=== PATIENT | female | born 1965 | race Caucasian/White ===

== ENCOUNTER → 2017-04-19 | Outpatient (CLI) | payer BC ==
[2016-03-30 13:12] VITALS: BP 156/105
[~2017-04-19] MED LIST: FLUT9.9S NS
--- NOTE | 2017-04-19 12:42 | KCIC ---
Bilateral digital screening mammogram History: 51-year-old female presents for annual screening mammography. Patient is status post right breast biopsy March 2016, pathology results not available at this time. Comparison: February 26, 2016 and April 03, 2011 Findings: Breast Tissue Density B :There are scattered areas of fibroglandular density. Bilateral digital mammogram images are obtained with CAD. There has been interval development of an 8 mm, oval, low-density mass in the upper outer right breast at anterior depth approximately 8 cm from the nipple. An asymmetry is seen within the central left breast at posterior depth on the cc view, not well visualized on the MLO view although may reside superiorly within the breast. A postbiopsy clip is now visualized within the oval mass within the 8:30 to 9:00 right breast. No suspicious architectural distortion or grouped microcalcifications are identified. Impression: Recommend spot compression views of both breasts for further evaluation of findings detailed above, with ultrasound as indicated. BI-RADS Category 0: Incomplete: Need additional imaging evaluation. Electronically signed by: Violette Sigala MD (04/19/2017 12:39 PM) [id number]
== END | disposition home or self-care (01) ==
LOC: KCIC MAMMO 09:09
PROVIDERS: ATTEND Family Medicine
DX: Z12.31 Encounter for screening mammogram for malignant neoplasm of breast (principal)
CPT/HCPCS: G0202; 77067

== ENCOUNTER → 2017-04-21 | Outpatient (CLI) | payer BC | END | disposition home or self-care (01) | LOC: KCIC MAMMO 14:17 | DX: R92.8 Other abnormal and inconclusive findings on diagnostic imaging of breast (principal) | CPT/HCPCS: 76641; G0204 ==

== ENCOUNTER → 2017-10-21 | Outpatient (CLI) | payer BC | END | disposition home or self-care (01) | LOC: KCIC US 13:05 | DX: N63.11 Unspecified lump in the right breast, upper outer quadrant (principal) | CPT/HCPCS: 76641 ==

== ENCOUNTER → 2018-05-19 | Outpatient (CLI) | payer BC ==
[2016-03-30 13:12] VITALS: BP 156/105
--- NOTE | 2018-05-19 15:16 | RAD ---
DATE: 05/19/2018 EXAM: MAMMO DAX PAT INIGUEZ, BREAST LEFT HISTORY: Follow-up breast nodules COMPARISON: 04/21/2017, 04/19/2017 This study was interpreted with the benefit of Computerized Aided Detection (CAD). Breast Density: SCATTERED The breast parenchyma shows scattered fibroglandular densities. Breast parenchyma level B. FINDINGS: 2-D and 3-D tomosynthesis imaging was performed in the CC and MLO projections. A small smooth nodule at 12:00 location in the left breast is unchanged. There is an unchanged nodule in the lateral aspect of the right breast containing a biopsy marker. Reportedly those biopsy results were benign. A smooth nodule seen just anterior to the old biopsied lesion on the previous study has regressed compatible with a benign etiology. No new or enlarging breast densities are seen. Scattered benign type calcifications are present. No suspicious microcalcifications have developed. Left breast ultrasound, 05/19/2018: A targeted ultrasound exam of the left breast was performed at the 12:00 location for follow-up of a known nodule. At 12:00 location approximately 8 cm from the nipple there is a small oval-shaped smooth hypoechoic nodule. It is wider than tall. There is no significant posterior acoustic enhancement or shadowing. It currently measures 9 x 4 x 5 mm compared to measurements of 10 x 5 x 5 mm on the previous study. Allowing for technical differences it is therefore stable to slightly smaller than on the previous study. IMPRESSION: 1. The small right lateral breast nodule has regressed compatible with a benign etiology. 2. Otherwise stable bilateral mammograms. 3. Stable, small, probably benign left breast nodule. Follow-up left breast ultrasound in 6 months and bilateral mammography at one year is suggested. BI-RADS CATEGORY: 3 PROBABLY BENIGN FINDING(S)-SHORT INTERVAL FOLLOW-UP SUGGESTED RECOMMENDED FOLLOW-UP: 6M 6 MONTH FOLLOW-UP PQRS compliance statement: Patient information was entered into a reminder system with a target due date for the next mammogram. Mammography is a sensitive method for finding small breast cancers, but it does not detect them all and is not a substitute for careful clinical examination. A negative mammogram does not negate a clinically suspicious finding and should not result in delay in biopsying a clinically suspicious abnormality. "Our facility is accredited by the [employer] Mammography Program."
== END | disposition home or self-care (01) ==
LOC: MAMMO 13:03
PROVIDERS: ATTEND Family Medicine
DX: N63.21 Unspecified lump in the left breast, upper outer quadrant (principal); N63.10 Unspecified lump in the right breast, unspecified quadrant
CPT/HCPCS: 76641; 77066; G0279; 77062

== ENCOUNTER → 2018-11-24 | Outpatient (CLI) | payer BC ==
[2016-03-30 13:12] VITALS: BP 156/105
--- NOTE | 2018-11-24 14:31 | RAD ---
LEFT BREAST SONOGRAPHY Clinical indications: Follow-up of left breast nodule at the 12:00 position FINDINGS: High-resolution sonography of the 12:00 position of the left breast was performed. 8 cm from the nipple, a hypoechoic ovoid nodule is seen measuring 9 mm x 4 mm x 5 mm in size. It is unchanged in appearance and size from the previous study. No internal color Doppler flow is seen within it. IMPRESSION: Stable hypoechoic nodule at the 12:00 position of the left breast. Recommend bilateral mammography in 6 months and left breast sonogram in 6 months. BI-RADS Category 3 probably benign The patient information was entered into the data reminder system with a target due date for the next mammogram and ultrasound of May 27, 2019. Electronically signed by: Wayne Reilly MD (11/24/2018 2:28 PM) [facility]
== END | disposition home or self-care (01) ==
LOC: US 15:56
PROVIDERS: ATTEND Family Medicine
DX: N63.21 Unspecified lump in the left breast, upper outer quadrant (principal)
CPT/HCPCS: 76641

== ENCOUNTER → 2020-08-28 | Outpatient (CLI) | payer BC ==
[2016-03-30 13:12] VITALS: BP 156/105
--- NOTE | 2020-08-28 15:00 | RAD ---
INDICATION: 55 years of age asymptomatic female patient presents for diagnostic mammography. TECHNIQUE: Full field craniocaudal and mediolateral oblique images of both breasts were obtained usi ng digital technique with tomosynthesis and also analyzed with computer-aided detection software. COMPARISON: 05/19/2018, 04/21/2017, 03/30/2016, 02/26/2016. BREAST COMPOSITION: Category B: There are scattered fibroglandular densities. FINDINGS: Benign calcifications are present. The parenchymal pattern appears stable. Well-circumscribed oval mass in the lateral right breast is stable in appearance. Adjacent biopsy cli p is identified. No suspicious right breast microcalcification or architectural distortion No suspicious masses, microcalcifications or architectural distortion is present to suggest malignanc y in the left breast. The visualized axillae are unremarkable. ULTRASOUND FINDINGS: Targeted ultrasound of the previously described probably benign finding was again performed. A 1 x 0.5 x 0.6 cm hypoechoic nodule is seen at the 12:00 position approximately 8 cm from the left n ipple. IMPRESSION: Left breast probably benign mass, findings for which follow up imaging is advised. RECOMMENDATION: Diagnostic mammography and ultrasound is recommended in 12 months, unless clinically indicated sooner based on symptoms or change in physical exam. BIRADS 3: PROBABLY BENIGN This study was interpreted with the benefit of Computerized Aided Detection (CAD). Patient information is entered into the reminder system with a target due date for the next screening mammogram. Mammography is the most sensitive method for finding small breast cancers, but it does not detect the m all and is not a substitute for careful clinical examination. A negative mammogram does not negate a clinically suspicious finding and should not result in delay in biopsying a clinically suspicious a bnormality. "Our facility is accredited by the [employer] Mammography Program." Electronically signed by: Cristino Johnson MD (08/28/2020 2:58 PM) [facility]
== END ==
LOC: MAMMO 11:53
PROVIDERS: ATTEND Family Medicine
DX: N63.22 Unspecified lump in the left breast, upper inner quadrant (principal)
CPT/HCPCS: 76641; 77066; G0279; 77062